=== PATIENT | female | born 1960 ===

== ENCOUNTER 2023-11-26 21:16 | Inpatient (IN) | payer OTHER ==
[~2023-11-26] VITALS: Ht 162.6 cm; Wt 88.8 kg
[2023-11-26 22:25] LABS: PCO2 Arterial 49.2 mmHg (35-45); PO2 Arterial 55.9 mmHg (80-100); pH Blood Arterial 7.43 (7.35-7.45)
[2023-11-26 22:30] VITALS: BP 147/114
[2023-11-26 22:45] VITALS: BP 151/127
[2023-11-26 22:55] LABS: BASOPHILS ABSOLUTE AUTO 0.05 K/mm3 (0.00-0.23); BASOPHILS PERCENT AUTO 1 % (0-2); EOSINOPHILS ABSOLUTE AUTO 0.11 K/mm3 (0.00-0.68); EOSINOPHILS PERCENT AUTO 1 % (0-6); Hematocrit 54.6 % (33.0-51.0); Hemoglobin 17.1 g/dL (11.5-16.0); Mean Corpuscular HGB 27.1 pg (26.0-34.0); Mean Corpuscular HGB Conc 31.3 g/dL (31.5-36.5); Mean Corpuscular Volume 87 fL (80-100); Mean Platelet Volume 10.3 fL (9.1-12.4); Platelet Count 319 K/mm3 (150-400); RDW Coefficient Variation 14.6 % (11.7-14.2); RDW Standard Deviation 46.1 fL (35.1-46.3); Red Blood Cell Count 6.31 M/mm3 (3.80-5.20); White Blood Cell Count 10.91 K/mm3 (4.00-11.30)
[2023-11-26 23:00] VITALS: BP 151/116
[2023-11-26 23:01] LABS: IMMATURE GRAN ABSOLUTE AUTO 0.04 K/mm3 (0.00-0.10); IMMATURE GRAN PERCENT AUTO 0 % (0-1); LYMPHOCYTES ABSOLUTE AUTO 4.34 K/mm3 (0.84-5.20); LYMPHOCYTES PERCENT AUTO 40 % (21-46); MONOCYTES PERCENT AUTO 6 % (4-13); NEUTROPHILS ABSOLUTE AUTO 5.67 K/mm3 (1.96-9.15); NEUTROPHILS PERCENT AUTO 52 % (41-73)
[2023-11-26 23:14] LABS: Albumin/Globulin Ratio 0.8 (0.8-1.8); Bilirubin, Total 0.4 mg/dL (0.1-1.0); Bun/Creatinine Ratio 8.3 (12.0-20.0); Calcium, Blood 8.5 mg/dL (8.5-10.1); Creatinine, Blood 0.97 mg/dL (0.40-1.00); Potassium, Blood 3.4 mmol/L (3.5-5.5)
[2023-11-26 23:15] VITALS: BP 155/116
[2023-11-26 23:30] VITALS: BP 142/114
[2023-11-26 23:35] LABS: Magnesium, Blood 2.5 mg/dL (1.6-2.4)
[2023-11-26 23:45] VITALS: BP 155/124
[2023-11-26] MEDS ORDERED: ALBU2.5V5 INH (23:45)
[2023-11-26] MEDS ORDERED: ASPI81CH PO (23:45)
[2023-11-26] MEDS ORDERED: CARV25 PO (23:46)
[2023-11-26] MEDS ORDERED: FURO40 PO (23:46)
[2023-11-26] MEDS ORDERED: CLOP75 PO (23:46)
[2023-11-26] MEDS ORDERED: HYDRA25 PO (23:47)
[2023-11-26] MEDS ORDERED: Crestor40 MG PO (23:48)
[2023-11-26] MEDS ORDERED: ENTRESTO 97 MG1 EACH PO (23:48)
[2023-11-26] MEDS ORDERED: LEVSOD100 PO (23:48)
[2023-11-26] MEDS ORDERED: SPIR50 PO (23:49)
[2023-11-27] VITALS (31 sets, daily range): BP systolic 108–169; BP diastolic 55–133
[2023-11-27 00:33] LABS: Source, Urine Clean Catch
[2023-11-27 00:37] LABS: Bilirubin, Urine Neg (Neg); Blood, Urine Neg (Neg); Glucose Qualitative, Urine Neg (Neg); Ketones, Urine Neg (Neg); Leukocyte Esterase, Urine Neg (Neg); Nitrite, Urine Neg (Neg); Protein, Urine 2+ (Neg); Urobilinogen, Urine NORM (Normal); pH, Urine 6.5 (5.0-8.0)
[2023-11-27 00:44] LABS: Appearance, Urine Clear (Clear); Color, Urine Yellow (P-Yellow)
[2023-11-27 00:45] LABS: Bacteria Not Seen /hpf; Red Blood Cells, Urine Not Seen /hpf (0-2); Squamous Epithelial Cells Not Seen /hpf (Few); White Blood Cells, Urine 0-2 /hpf (0-5)
[2023-11-27 00:55] LABS: U Amphetamine Screen Not Detected; U Barbituate Screen Not Detected; U Benzodiazapine Screen DETECTED; U Buprenorphine Screen Not Detected; U Cannabinoids Screen Not Detected; U Cocaine Screen Not Detected; U Methadone Screen Not Detected; U Methamphetamine Screen Not Detected; U Opiates Screen DETECTED; U Oxycodone Screen DETECTED; U Phencyclidine Screen Not Detected
--- NOTE | 2023-11-27 02:27 | NUR ---
PT ARRIVAL: PT TRANSPORTED TO UNIT VIA EMS arrived at 2215. Upon arrival pt was on room air and O2 saturation was 91%. Her HR was bradycardic in the 40-50 range. She was tachypnic and had moderate accessory muscle usage. She was lethargic, but responded to verbal stimuli. She was oriented x 4. Pt reported an extensive cardiac history with multiple stents placed in the past. She also has been dx with COPD and ESTELLE, but states that she is not compliant with her CPAP Rx. She also stated that she recently underwent a dental surgery and has been taking oxycodone, but that her last dose was yesterday (11/25) morning. She c/o increased drowsiness over the last 2 days and SOB w/ exertion. Dr. Quiñonez was contacted and informed of pt's arrival. Orders were placed.
[2023-11-27 02:53] LABS: Adenovirus Not Detected (NOT DETECT); Bordetella pertussis Not Detected (NOT DETECT); Chlamydophila pneumoniae Not Detected (NOT DETECT); Coronavirus 229E Not Detected (NOT DETECT); Coronavirus HKU1 Not Detected (NOT DETECT); Coronavirus NL63 Not Detected (NOT DETECT); Coronavirus OC43 Not Detected (NOT DETECT); Human Metapneumovirus Not Detected (NOT DETECT); Human Rhinovirus/Enterovirus Detected (NOT DETECT); Influenza A/2009-H1 Not Detected (NOT DETECT); Influenza A/H1 Not Detected (NOT DETECT); Influenza A/H3 Not Detected (NOT DETECT); Influenza B Not Detected (NOT DETECT); Mycoplasma pneumoniae Not Detected (NOT DETECT); Parainfluenza Virus 1 Not Detected (NOT DETECT); Parainfluenza Virus 2 Not Detected (NOT DETECT); Parainfluenza Virus 3 Not Detected (NOT DETECT); Parainfluenza Virus 4 Not Detected (NOT DETECT); Respiratory Syncytial Virus Not Detected (NOT DETECT); SARS-Cov-2 (COVID-19), BioFire Not Detected (NOT DETECT)
--- NOTE | 2023-11-27 06:13 | NUR ---
SHIFT SUMMARY: - Pt is resting comfortably in bed. She states that she is feeling better than she did when she arrived. She has tolorated CPAP overnight and maintained O2 saturations 95-98. Her HR has stayed between 40-75 BPM with intermittent PVC's. She did have 2 short bursts of V-tach. They were short in duration and she quickly converted out of them. She maintained pulses and was asymptomatic. Pt denies any chest pain, but continues to c/o SOB w/ exerction. Plan of care has been discussed with pt and family. They stated that they agree with plan and all current questions have been answered.
[2023-11-27 06:41] LABS: BASOPHILS ABSOLUTE AUTO 0.05 K/mm3 (0.00-0.23); BASOPHILS PERCENT AUTO 0 % (0-2); EOSINOPHILS ABSOLUTE AUTO 0.02 K/mm3 (0.00-0.68); EOSINOPHILS PERCENT AUTO 0 % (0-6); Hemoglobin 18.3 g/dL (11.5-16.0); IMMATURE GRAN ABSOLUTE AUTO 0.06 K/mm3 (0.00-0.10); IMMATURE GRAN PERCENT AUTO 1 % (0-1); LYMPHOCYTES ABSOLUTE AUTO 2.32 K/mm3 (0.84-5.20); LYMPHOCYTES PERCENT AUTO 20 % (21-46); MONOCYTES ABSOLUTE AUTO 0.55 K/mm3 (0.16-1.47); MONOCYTES PERCENT AUTO 5 % (4-13); Mean Corpuscular HGB 27.4 pg (26.0-34.0); Mean Corpuscular HGB Conc 32.3 g/dL (31.5-36.5); Mean Corpuscular Volume 85 fL (80-100); NEUTROPHILS ABSOLUTE AUTO 8.87 K/mm3 (1.96-9.15); NEUTROPHILS PERCENT AUTO 75 % (41-73); Platelet Count 330 K/mm3 (150-400); RDW Standard Deviation 45.1 fL (35.1-46.3); Red Blood Cell Count 6.67 M/mm3 (3.80-5.20); White Blood Cell Count 11.87 K/mm3 (4.00-11.30)
[2023-11-27 06:58] LABS: Hematocrit 56.7 % (33.0-51.0)
[2023-11-27 07:09] LABS: Bun/Creatinine Ratio 9.9 (12.0-20.0); Calcium, Blood 8.8 mg/dL (8.5-10.1); Creatinine, Blood 1.01 mg/dL (0.40-1.00); Potassium, Blood 3.9 mmol/L (3.5-5.5)
--- NOTE | 2023-11-27 16:38 | NUR ---
SHIFT SUMMARY NO ACUTE CHANGES THIS SHIFT. PT HAS REMAINED LETHARGIC THROUGHOUT THE SHIFT. PT AWAKENS EASILY TO VERBAL STIMULI, BUT QUICKLY FALLS BACK TO SLEEP WHEN UNDISTURBED. PT ANSWERS QUESTIONS APPROPRIATELY IN SHORT SENTENCES. PT HAS REMAINED OFF CPAP MOST OF THIS AFTERNOON ON 4L O2 NC. PT DENIES CHEST PAIN OR SOB AT REST. VITAL SIGNS STABLE. PT REMAINS WITH HR 40-60'S WITH FREQUENT ECTOPY AND OCCASIONAL NONSUSTAINED VTACH. DR PACE AWARE. PT WITH PIV'S SALINE LOCKED. LANCASTER IN PLACE WITH YELLOW OUTPUT NOTED. PT SPOUSE REMAINS AT BEDSIDE. WILL CONTINUE TO MONITOR AND REPORT OFF TO ONCOMING RN.
--- NOTE | 2023-11-27 21:26 | NUR ---
SHIFT HANDOFF: aT THE BEGGINING OF SHIFT PT IS SLEEPING BUT EASILY ARROUSED. SHE IS ORIENTATED X 4. SHE STATES THAT SHE FEELS LIKE HER SPEECH AND DEXTERITY HAVE IMPROVED. PT REPORTS CONTINUED DROWSINESS, BUT STATES THAT IT HAS IMPROVED FROM YESTERDAY. SHE IS CURRENTLY ON 4L NC AND HER WORK OF BREATHING HAS IMPROVED. SHE CONTINUES TO BE BRADYCARDIC WITH A 1ST DEGREE AV BLOCK AND LBBB. SHE DENIES ANY PAIN OR N/V. SHE DOES C/O INTERMITTENT DIZINESS, BUT STATES THAT IT HAS NOT BEEN PERSISTENT.
[2023-11-27 21:52] LABS: Magnesium, Blood 2.3 mg/dL (1.6-2.4); Potassium, Blood 3.5 mmol/L (3.5-5.5)
[2023-11-28] VITALS (12 sets, daily range): BP systolic 112–163; BP diastolic 87–123
[2023-11-28 03:32] LABS: BASOPHILS ABSOLUTE AUTO 0.03 K/mm3 (0.00-0.23); BASOPHILS PERCENT AUTO 0 % (0-2); EOSINOPHILS PERCENT AUTO 0 % (0-6); Hemoglobin 19.1 g/dL (11.5-16.0); IMMATURE GRAN ABSOLUTE AUTO 0.06 K/mm3 (0.00-0.10); IMMATURE GRAN PERCENT AUTO 0 % (0-1); LYMPHOCYTES ABSOLUTE AUTO 2.21 K/mm3 (0.84-5.20); LYMPHOCYTES PERCENT AUTO 16 % (21-46); MONOCYTES ABSOLUTE AUTO 0.33 K/mm3 (0.16-1.47); MONOCYTES PERCENT AUTO 2 % (4-13); Mean Corpuscular HGB 27.3 pg (26.0-34.0); Mean Corpuscular HGB Conc 32.6 g/dL (31.5-36.5); Mean Corpuscular Volume 84 fL (80-100); Mean Platelet Volume 10.5 fL (9.1-12.4); NEUTROPHILS ABSOLUTE AUTO 11.14 K/mm3 (1.96-9.15); NEUTROPHILS PERCENT AUTO 81 % (41-73); Platelet Count 302 K/mm3 (150-400); RDW Coefficient Variation 16.1 % (11.7-14.2); RDW Standard Deviation 44.3 fL (35.1-46.3); Red Blood Cell Count 6.99 M/mm3 (3.80-5.20); White Blood Cell Count 13.77 K/mm3 (4.00-11.30)
[2023-11-28 03:37] LABS: Hematocrit 58.6 % (33.0-51.0)
[2023-11-28 03:51] LABS: Albumin, Blood 2.9 g/dL (3.4-5.0); Albumin/Globulin Ratio 0.7 (0.8-1.8); Bilirubin, Total 0.8 mg/dL (0.1-1.0); Bun/Creatinine Ratio 15.1 (12.0-20.0); Calcium, Blood 8.5 mg/dL (8.5-10.1); Creatinine, Blood 1.19 mg/dL (0.40-1.00); Globulin, Blood 4.2 g/dL (2.2-4.0); Total Protein, Blood 7.1 g/dL (6.4-8.2)
--- NOTE | 2023-11-28 06:33 | NUR ---
SHIFT SUMMARY: PT'S METATION IMPROVED OVERNIGHT. SHE WAS ABLE TO MAINTAIN CONVERSATION WITH STAFF AND FAMILY WHEN IN THE ROOM. SHE ALSO WOKE UP SPONTANEOUSLY PERIODICALLY THROUGHOUT THE NIGHT AND WAS ABLE TO EXPRESS HER NEEDS. PT WAS COMPLIANT WITH BIPAP OVERNIGHT AND HER O2 SATURATION WAS STABLE. SHE DID C/O PERIODIC EPISODES OF NAUSEA THAT SPONTANEOUSLY RESOLVED AND DID NOT REQUIRE ANY MEDICATION. AT 0620 THIS MORNING SHE DID START TO C/O SUBSTERNAL CHEST PAIN. DR. KOHLER WAS INFORMED AND GAVE A VERBAL ORDER FOR PAIN MEDICATION. PT HAD NO CHANGE IN HER HEART RATE/RHYTHM OR BP. SHE STATES THAT PAIN WAS RELIEVED BY MEDICATION. PT HAS A TKO RUNNING. LANCASTER IN PLACE AND IS DRAINING APPROPRIATLY. URINE OUTPUT HAS DECREASED. DR KOHLER IS AWARE AND INSTRUCTED TO CONTINUE TO MONITOR. PT'S DAUGHTER HAS BEEN AT BEDSIDE ALL NIGHT.
[2023-11-28 07:54] LABS: Magnesium, Blood 2.2 mg/dL (1.6-2.4); Phosphorus, Blood 3.2 mg/dL (2.5-4.9)
--- NOTE | 2023-11-28 16:58 | NUR ---
SHIFT SUMMARY NO ACUTE CHANGES THIS SHIFT. PT AWAKENS EASILY TO VERBAL STIMULI AND ANSWERS QUESTIONS APPROPRIATELY. PT FALLS BACK TO SLEEP QUICKLY WHEN UNDISTURBED. PT HAS DENIED CHEST PAIN OR SOB THIS AFTERNOON. PT TITRATED DOWN TO 3L O2 NC. VITAL SIGNS REMAIN STABLE. PT CONTINUES WITH HR 40-60'S WITH FREQUENT ECTOPY. PT ASYMPTOMATIC AND DR PACE AWARE. PT TAKING PO FLUID INTAKE WELL, BUT WITH POOR APPETITE THIS SHIFT. PT RECIEVED MULTIPLE DOSES OF LASIX THIS SHIFT. PT WITH LANCASTER IN PLACE WITH LARGE AMOUNT OF CLEAR YELLOW URINE OUTPUT NOTED. PT SPOUSE AT BEDSIDE MOST OF THIS SHIFT. WILL CONTINUE TO MONITOR AND REPORT OFF TO ONCOMING RN.
--- NOTE | 2023-11-28 19:14 | NUR ---
SHIFT SUMMARY: ASSUMED CARE OF PATIENT AT 1743 UPON HER TRANSFER FROM ICU. AROUSES TO SPEECH AND IS ORIENTED WHEN AWAKE. O2 @ 3 L/MIN NC, CPAP AT BESIDE. TIRE SPECIALIST PLACED ON PATIENT, RATE 37-45 IRREGULAR. PT C/O 810 CHEST PAIN AT ~ 1810, RADIATED BRIEFLY TO R JAW AND L SHOULDER/UPPER ARM. REPORTED THIS TO DR. PACE; RECEIVED ORDERS FOR EKG (ALREADY IN PROGRESS) AND TROPONIN X 1. GAVE FENTANYL 25 MCG FOR THE PAIN, WHICH GAVE SOME RELIEF. TROPONIN RESULT WAS 171; PREVIOUS RESULT ON 11/27 WAS 188. SPOKE TO HOMOEOPATH SINCE RESULT IS TRENDING IN THE RIGHT DIRECTION. LANCASTER DRAINING CLEAR YELLOW URINE. BEST FRIEND AT BEDSIDE AT THIS TIME.
[2023-11-28 23:35] LABS: Bun/Creatinine Ratio 22.2 (12.0-20.0); Calcium, Blood 8.1 mg/dL (8.5-10.1); Creatinine, Blood 1.17 mg/dL (0.40-1.00); Potassium, Blood 3.2 mmol/L (3.5-5.5)
[2023-11-29] VITALS (12 sets, daily range): BP systolic 89–122; BP diastolic 44–88
--- NOTE | 2023-11-29 00:26 | NUR ---
CRITICAL LAB VALUE 7249 TROPONIN LEVEL: 178 DR. KOHLER NOTIFIED OF CRITICAL LAB VALUE.
[2023-11-29 05:28] LABS: Albumin, Blood 2.6 g/dL (3.4-5.0); Anion Gap 5 mmol/L (6-16); Blood Urea Nitrogen 25 mg/dL (8-24); Bun/Creatinine Ratio 23.8 (12.0-20.0); CO2, Blood 34 mmol/L (21-32); Chloride, Blood 101 mmol/L (98-108); Creatinine, Blood 1.05 mg/dL (0.40-1.00); Glomerular Filtration Rate 60 (60-); Glucose, Blood 120 mg/dL (70-99); Magnesium, Blood 2.1 mg/dL (1.6-2.4); Phosphorus, Blood 3.6 mg/dL (2.5-4.9); Potassium, Blood 3.3 mmol/L (3.5-5.5); Sodium, Blood 140 mmol/L (136-145)
--- NOTE | 2023-11-29 08:06 | NUR ---
Pt laying in bed awake, a/ox3, pleasant and cooperative with care, follows commands well, denies pain, states she is sob, lungs are clear in [place], some courseness, faint wheeze noted to mid field and bases, resp even and unlabored, on 3 liters o2 via n/c, no cough noted, does report sob, hrirr, tele in place running sr with bbb, with pvc and pacs, had a 5 beat run vtach durring hs, and a 2.3 sec pause at 0218, 2+ edema noted to b/l le, pp faint, piv to lac, site is clear and patent, btx4, hypoactive, campbell cath draining yellow urine, skin c/w/d, joseph, one person assist to bsc, will, notified Dr. Berrios of concerns about low heart rate and pause durring the night, recieved order for cardiology consult, this was called to answering service, will hold coreg for low rate. call light in reach.
[2023-11-29 10:14] LABS: Free Thyroxine 0.79 ng/dL (0.70-1.60); Thyroid Stimulating Hormone 4.49 uIU/mL (0.360-4.800)
[2023-11-29 11:27] LABS: Cholesterol 115 mg/dL (50-200); HDL Cholesterol 23 mg/dL (>39); LDL/HDL RATIO 2.8; Low Density Lipoprotein Chol 65 mg/dL (0-110); Triglycerides 136 mg/dL (30-160); Very Low Density Lipoprot Chol 27 mg/dL (6-32)
--- NOTE | 2023-11-29 15:56 | NUR ---
Pt has been transfered to u, report given to Kamini VILLA, taken via wheelchair with spouce in attendence, all belongings went with spouce.
--- NOTE | 2023-11-29 15:57 | NUR ---
TRANSFER: PT TO PCU 4 FROM MEDICAL FLOOR. PT A+O. SPOUSE AT BEDSIDE. PT SBA TO BED. LANCASTER DRAINING DARK YELLOW URINE. ATTENDS IN PLACE. EXP WHEEZES T/O LUNGS. DENIES SOB. SATS STABLE ON 3L. TELE IN PLACE. IV FLUSHED WITH 10NS. PT DUSKY IN COLOR. LE DISCOLORED AND COOL. SBP IN THE 80'S. REPORT TO DAISY VICENTE SHE IS ASSUMING CARE.
--- NOTE | 2023-11-29 22:57 | NUR ---
ASSUMPTION OF CARE AFTER RECEIVING REPORT FROM JULES VILLA, THIS RN ASSUMED CARE AT APPROX 1915. PATIENT IS ALERT AND ORIENTED X4. AT BEDSIDE, THIS RN PROVIDED EDUCATION REGARDING VISITOR GUIDELINES. THIS RN DISCUSSED WITH DELI BAKERY CLERK GLADIS, HER IS ABLE TO STAY AT BEDSIDE THROUGHOUT NIGHT IF MORE COMFORTABLE. IS CURRENTLY NOT AT BEDSIDE, PATIENT REPORTING THAT SHE WILL CALL HIM IF NEEDED. TELEMETRY SHOWING SINUS ARRYTHMIA 60's-70's AT BEGINNING OF SHIFT. PATIENT DID CONVERT TO A SECOND DEGREE BLOCK TYPE TWO, RATE DECREASE TO 30's. CURRENTLY SUSTAINING 50's-60's. NPO AT MIDNIGHT FOR POSSIBLE PACEMAKER PLACEMENT 11/29/23. BP SOFT, SBP 100's. MAP >65. DENIES CHEST PAIN OR PRESSURE. DOES REPORT EPIGASTRIC PAIN 06/07. THIS RN ADMINISTED IV FENTANYL PER EMAR W/ RELIEF, PATIENT REPORTING THAT IT DOES NOT "LAST VERY LONG." MD ON UNIT FOR ROUNDING, DISCUSSED EPIGASTRIC PAIN. RECEIVED ORDER FOR GI COCKTAIL, ADMINISTERED PER EMAR. PATIENT REPORTING SOME RELIEF. IS ON 4L VIA NASAL CANNULA, SATS 90%. EXPERIENCES INCREASED SHORTNESS OF BREATH WITH MOBILITY, STAND BY ASSIST TO BEDSIDE COMMODE. SHORTNESS OF BREATH EASES AT REST. LANCASTER CATHETER IN PLACE, DRAINING YELLOW URINE TO GRAVITY. PATIENT IS ABLE TO REPOSITION HERSELF IN BED. CALL LIGHT IN REACH.
--- NOTE | 2023-11-29 23:54 | NUR ---
CALL PLACED TO MD REGARDING RHYTHM CHANGE TO SECOND DEGREE TYPE TWO. RATE SUSTAINING 50's-60's WITH OCCASSIONAL DECREASE 40's. BP SOFT, SBP 90's-100's. MAP >65. PATIENT CONTINUING TO REPORT EPIGASTRIC PAIN. REPORTS THAT THE FENTANYL AND GI COCKTAIL PROVIDE SOME RELIEF, BUT ARE NOT LONG LASTING. MD TO UNIT TO ASSESS PATIENT.
[2023-11-30] VITALS (19 sets, daily range): BP systolic 90–125; BP diastolic 44–92
--- NOTE | 2023-11-30 00:04 | NUR ---
MD TO BEDSIDE TO ASSESS PATIENT. PATIENT REPORTING THAT PAIN INCREASES WITH PALPATION, IT DOES NOT RADIATE DOWN TO THE ABDOMEN. IT INCREASES WITH DEEPER BREATHS. PER MD, PAIN IS MOST LIKELY MORE RIB PAIN, RELATED TO INFLAMMATION, FROM FREQUENT COUGH. PATIENT REPORTING THAT SHE IS UNABLE TO TAKE NSAID's. NO NEW ORDERS RECEIVED, TO CONTINUE TO IV FENTANYL. NO ORDERS RECEIVED REGARDING RHYTHM CHANGE. BP SOFT, 90's-100's. MAP REMAINS >65. RATE 50's-60's.
[2023-11-30 04:32] LABS: Hematocrit 52.7 % (33.0-51.0); Hemoglobin 16.9 g/dL (11.5-16.0); Mean Corpuscular HGB 27.1 pg (26.0-34.0); Mean Corpuscular HGB Conc 32.1 g/dL (31.5-36.5); Mean Corpuscular Volume 85 fL (80-100); Mean Platelet Volume 11.3 fL (9.1-12.4); Platelet Count 245 K/mm3 (150-400); RDW Coefficient Variation 15.5 % (11.7-14.2); RDW Standard Deviation 44.5 fL (35.1-46.3); Red Blood Cell Count 6.23 M/mm3 (3.80-5.20); White Blood Cell Count 14.02 K/mm3 (4.00-11.30)
[2023-11-30 05:02] LABS: Albumin, Blood 2.7 g/dL (3.4-5.0); Anion Gap 3 mmol/L (6-16); Blood Urea Nitrogen 21 mg/dL (8-24); Bun/Creatinine Ratio 20.4 (12.0-20.0); CO2, Blood 37 mmol/L (21-32); Calcium, Blood 7.8 mg/dL (8.5-10.1); Chloride, Blood 98 mmol/L (98-108); Creatinine, Blood 1.03 mg/dL (0.40-1.00); Glomerular Filtration Rate 62 (60-); Glucose, Blood 108 mg/dL (70-99); Magnesium, Blood 2.1 mg/dL (1.6-2.4); Phosphorus, Blood 2.8 mg/dL (2.5-4.9); Potassium, Blood 3.1 mmol/L (3.5-5.5); Sodium, Blood 138 mmol/L (136-145)
--- NOTE | 2023-11-30 05:43 | NUR ---
SHIFT SUMMARY SEE PREVIOUS NOTES. PATIENT IS CURRENTLY SLEEPING, EASILY AROUSABLE TO VERBAL STIMULI. IS ABLE TO REPOSITION HERSELF IN BED INDEPENDENTLY. STERNAL PAIN MANAGED PER EMAR W/ IV FENTANYL. TELEMETRY CURRENTLY SHOWING SINUS W/ PACs AND OCCASSIONAL PVCs. RATE 50's-60's. PATIENT CONTINUING TO INTERMITTENTLY CONVERT TO SECOND DEGREE BLOCK TYPE TWO, RATE DECREASE 30's-40's. BP REMAINS SOFT, 90's-110's. MAP >65. MD AWARE. NO NEW ORDERS RECEIVED. PATIENT HAS BEEN NPO SINCE MIDNIGHT FOR POSSIBLE PACEMAKER PLACEMENT TODAY 11/30/23. REMAINS ON 4L VIA NASAL CANNULA, SATS 88-92%. OCCASSIONAL CONGESTED COUGH NOTED. CALL LIGHT IN REACH. WILL REPORT TO ONCOMING RN.
--- NOTE | 2023-11-30 11:06 | NUR ---
UPDATE PT POTASSIUM LOW THIS AM, IV K+ ORDERED BY , SEE EMAR. PT STATES, SHE "CANT TOLERATE" IV POTASSIUM, THAT SHE TRIED IN THE ICU AND IT HURT TOO MUCH. POTASSIUM ATTEMPTED AT A SLOWER THAN SCHEDULED RATE W/ NS CONCURRENT, PT STILL C/O OF BURNING. PT INSISTED ON STOPPING K+. NOTIFIED. PT C/O OF ANXIETY. PT STATES, "IM FRUSTRATED" BUT COULD NOT STATE WHY. PT STATES, "EVERYTHING, BUT MY CARE HAS BEEN GREAT." CALL PLACED TO MD PACE. MD PACE W/ ORDER FOR ATIVAN, SEE EMAR. ADMINISTERED TO PT. PT TO [facility] NOW FOR ANGIO.
--- NOTE | 2023-11-30 12:18 | NUR ---
UPDATE PT BACK FROM [facility]. NO INTERVENTIONS. R RADIAL SITE, TR BAND IN PLACE WITH 10 CC PER REPORT. NO BRUISING/BLEEDING/HEMATOMA NOTED, SITE SOFT. ARM BOARD IN PLACE. VSS. PT SET UP ON POST OP VITAL CAPTURE. PT CURRENTLY IN ROOM EATING LUNCH. AT BEDSIDE. MD ORDOÑEZ CALLED W/ ORDERS FOR PT TO DC THIS AFTERNOON ONCE RECOVERED, BACK TO [facility] TO FOLLOW UP WITH SYSTEMS SECURITY ANALYST AND DC WITH ZIO PATCH ON. MD ORDOÑEZ W/ ORDERS FOR NO COREG WELL.
--- NOTE | 2023-11-30 16:50 | NUR ---
SHIFT SUMMARY NO ACUTE CHANGES SINCE PREVIOUS NOTE. PT SLEEPING IN ROOM. SP02>90% ON 3L NC. TELEMETRY SHOWS SINUS ARRYTHMIA, HR MOSTLY 50'S-60'S. TELEMETRY NOTIFIED THIS AFTERNOON THAT HR TOUCHING 30'S EVERY FEW MINUTES. PT HAS R RADIAL SITE CURRENTLY IN PROCESS OF DEFLATING. NO BRUISING/HEMATOMA NOTED. SITE SOFT. ARM BOARD IN PLACE. ZIO PATCH ORDERED FOR TOMORROW DC. HOME 02 EVAL ORDERED. PT CURRENTLY SLEEPING IN ROOM, AT BEDSIDE.
--- NOTE | 2023-11-30 21:35 | NUR ---
ASSUMPTION OF CARE AFTER RECEIVING REPORT FROM JULES VILLA, THIS RN ASSUMED CARE AT APPROX 1915. PATIENT ALERT, SITTING UP IN BED WATCHING TV. IS ALERT AND ORIENTED X4. ABLE TO COMMUNICATE NEEDS EFFECTIVELY. EXPERIENCES EPISODES OF INCREASED ANXIETY, PRN ATIVAN IN PLACE AND FAMILY MEMBER AT BEDSIDE TO EASE ANXIETY. TELEMETRY SHOWING SINUS HONORIO 50's-60's. WILL CONVERT TO A SECOND DEGREE TYPE TWO BLOCK, RATE 30's-40's. BP SOFT, SBP 90's-100's. MAP >60. IS ASYMPTOMATIC OF BP. ANGIO PERFORMED TODAY, 11/30/23. R RADIAL SITE - TR BAND REMOVED AT 1920. TEGADERM DRESSING APPLIED OVER SITE. SITE IS SOFT, NONTENDER. NO HEMATOMA NOTED. ARMBOARD IN PLACE. IS ON 3L VIA NASAL CANNULA, SATS 88-92%. EXPERIENCES INCREASED SHORTNESS OF BREATH WITH EXERTION. REPORTS STERNAL PAIN THAT INCREASES WITH COUGHING, PALPATION, DEEPER RESPIRATIONS. REQUESTING IV FENTANYL, PROVIDED PATIENT EDUCATION REGARDING SAFE ADMINISTRATION. BP SOFT, IS BRADYCARDIC. OFFERED PILLOW FOR SPLINTING, KPAD. PATIENT DECLINED. LANCASTER CATHETER IN PLACE FOR RETENTION MANAGEMENT, DRAINING YELLOW URINE TO GRAVITY. CALL LIGHT IN REACH.
--- NOTE | 2023-11-30 22:12 | NUR ---
PATIENT REQUESTING MUCINEX FOR COUGH/CONGESTION. MD ZHENG CONTACTED. RECEIVED ORDER FOR MUCINEX ER 1200MG BID. WILL ADMINISTER PER EMAR.
[2023-12-01] VITALS: BP 95/70
[2023-12-01 01:50] VITALS: BP 117/79
[2023-12-01 02:00] VITALS: BP 116/70
[2023-12-01 04:00] VITALS: BP 116/85
[2023-12-01 05:26] LABS: Bun/Creatinine Ratio 17.6 (12.0-20.0); Calcium, Blood 8.2 mg/dL (8.5-10.1); Creatinine, Blood 0.91 mg/dL (0.40-1.00)
--- NOTE | 2023-12-01 05:44 | NUR ---
SHIFT SUMMARY NO ACUTE CHANGES SINCE PREVIOUS NOTES. PATIENT SLEPT INTERMITTENTLY THROUGHOUT SHIFT, EASILY AROUSABLE TO VERBAL STIMULI. NO EPISODES OF INCREASED ANXIETY THIS SHIFT, FAMILY AT BEDSIDE THROUGHOUT. TELEMETRY SHOWING SINUS 50's-70's. WILL CONVERT TO A SECOND DEGREE BLOCK TYPE TWO. BP IMPROVED, SBP 110's. MAP >65. MEDICATED PER EMAR X1 WITH IV FENTANYL FOR CONTINUED STERNAL PAIN W/ REPORTED RELIEF. ABLE TO TOLERATE SITTING ON SIDE OF BED, STANDING IN ROOM WITH NO REPORT OF DIZZINESS, LIGHTHEADEDNESS. REMAINS ON 3L VIA NASAL CANNULA, SATS 89-92%. REPORTS RELIEF FROM CONGESTION, COUGH WITH ADMINISTERED MUCINEX. LANCASTER CATHETER PATENT, DRAINING YELLOW URINE TO GRAVITY. NO BM THIS SHIFT. CALL LIGHT IN REACH. WILL REPORT TO ONCOMING RN.
[2023-12-01 06:10] LABS: HEMOGLOBIN A1C 6.2 % (4.8-5.6)
--- NOTE | 2023-12-01 06:12 | NUR ---
MD CONTACTED IN REGARDS TO POTASSIUM OF 3.0. RECEIVED ORDER FOR POTASSIUM CHLORIDE 40MEQ IV NOW. ORDER PLACED BY THIS RN.
[2023-12-01 07:35] VITALS: BP 107/72
--- NOTE | 2023-12-01 07:40 | NUR ---
Bedside report from DAISY Castro. The pt is sitting on the side of the bed, her daughter at bedside. Pt is pressing on her lower sternal area, c/o sharp pain, and asking for Fentanyl and Zofran for pain and nausea respectively. Vital signs are stable. Pt was given these meds and states now that her pain is decreased from 7/10 to 5/10. She has a moist-sounding cough but unable to expectorate any sputum yet. C/o pain also in her right IV site, which apparently is from the IV potassium infusion ongoing, as the site appears WNL. K rider rate was decreased to 10cc ./hour with NS infusing concurrently at 10 cc/hour. Pt states relief. Pt also has a campbell cathter which was per report placed for retention after 3 straight caths. Urine noted in bag and tubing is clear yellow. Per report the "pt cannot go home with a campbell, so bladder training should be started today." This was started at time of bedside report.Pt instructed to call if she feels like she needs to void.
[2023-12-01 12:02] VITALS: BP 104/76
[2023-12-01] MEDS ORDERED: PANT40 PO (12:44)
== END 2023-12-01 14:29 | disposition home or self-care (01) | DRG 291 ==
LOC: ICUE 21:16 → PCU 22:17 → ICUE 11-27 05:40 → MEDS 11-28 17:43 → PCU 11-29 15:54
PROVIDERS: Internal Medicine; Student in an Organized Health Care Education/Training Program; ADMIT Student in an Organized Health Care Education/Training Program
PROC: 4A033R1 Measurement of Arterial Saturation, Peripheral, Percutaneous Approach (ICD-10-PCS; principal; 2023-11-26)
DX: I11.0 Hypertensive heart disease with heart failure (principal); G92.8 Other toxic encephalopathy; I50.23 Acute on chronic systolic (congestive) heart failure; J96.01 Acute respiratory failure with hypoxia; J44.0 Chronic obstructive pulmonary disease with (acute) lower respiratory infection; J44.1 Chronic obstructive pulmonary disease with (acute) exacerbation; Z11.52 Encounter for screening for COVID-19; J06.9 Acute upper respiratory infection, unspecified; B97.89 Other viral agents as the cause of diseases classified elsewhere; G47.33 Obstructive sleep apnea (adult) (pediatric); T40.605A Adverse effect of unspecified narcotics, initial encounter; I44.1 Atrioventricular block, second degree; E87.6 Hypokalemia; E78.5 Hyperlipidemia, unspecified; K21.9 Gastro-esophageal reflux disease without esophagitis; E03.9 Hypothyroidism, unspecified; I25.10 Atherosclerotic heart disease of native coronary artery without angina pectoris; Z95.5 Presence of coronary angioplasty implant and graft; Z91.199 Patient's noncompliance with other medical treatment and regimen due to unspecified reason
CPT/HCPCS: 0202U; 36415; 36600; 51702; 71045; 76937; 78451; 80048; 80053; 80061; 80069; 81001; 82803; 83036; 83735; 83880; 84100; 84132; 84439; 84443; 84484; 85025; 85027; 93005; 93010; 93246; 93454; 94640; 94660; 94664; 94761; 94762; 99152; 99153; A9270; A9500; C1769; C1894; C8929; C9113; J1644; J1650; J1940; J2060; J2250; J2405; J2930; J3010; J3480; J7030; J7050; Q9957; Q9967

== ENCOUNTER 2025-10-02 16:02 | Inpatient (IN) | payer MEDICARE ==
[~2025-10-02] VITALS: Ht 162.6 cm; Wt 86.6 kg
[~2025-10-02 16:02] MED LIST: ALBU2.5V5 INH; ASPI81CH PO; CARV25 PO; CLOP75 PO; Crestor40 MG PO; ENTRESTO 97 MG1 EACH PO; FURO40 PO; HYDRA25 PO; LEVSOD100 PO; PANT40 PO; SPIR50 PO
[2025-10-02 18:37] VITALS: BP 120/82
[2025-10-02] MEDS ORDERED: NS 1,000 ML IV SCH (19:00)
[2025-10-02] MEDS ORDERED: Ondansetron HCl 2 MG / ML 2ML Vial IV PRN (19:00)
[2025-10-02] MEDS ORDERED: FLU VACC TS2025-26(6MOS UP)/PF 45 MCG/0.5 ML SYRINGE IM SCH (19:05)
[2025-10-02] MEDS ORDERED: FentaNYL Citrate 50 MCG/ML 2 ML Injection IV PRN (19:30)
[2025-10-02] MEDS ORDERED: Ipratropium/Albuterol SulF 2.5-0.5MG/3 ML Amp INH SCH (19:35)
[2025-10-02 19:50] LABS: BASOPHILS ABSOLUTE AUTO 0.04 K/mm3 (0.00-0.23); BASOPHILS PERCENT AUTO 1 % (0-2); EOSINOPHILS ABSOLUTE AUTO 0.02 K/mm3 (0.00-0.68); EOSINOPHILS PERCENT AUTO 0 % (0-6); Hematocrit 42.1 % (33.0-51.0); Hemoglobin 12.9 g/dL (11.5-16.0); IMMATURE GRAN ABSOLUTE AUTO 0.32 K/mm3 (0.00-0.10); IMMATURE GRAN PERCENT AUTO 4 % (0-1); LYMPHOCYTES ABSOLUTE AUTO 2.07 K/mm3 (0.84-5.20); LYMPHOCYTES PERCENT AUTO 26 % (21-46); MONOCYTES ABSOLUTE AUTO 0.55 K/mm3 (0.16-1.47); MONOCYTES PERCENT AUTO 7 % (4-13); Mean Corpuscular HGB Conc 30.6 g/dL (31.5-36.5); Mean Corpuscular Volume 72 fL (80-100); NEUTROPHILS ABSOLUTE AUTO 5.01 K/mm3 (1.96-9.15); NEUTROPHILS PERCENT AUTO 63 % (41-73); NRBC ABSOLUTE 0.00 K/mm3 (0.00-0.02); NRBC Auto 0.0 /100 WBC (0.0-0.2); Platelet Count 138 K/mm3 (150-400); RDW Coefficient Variation 22.9 % (11.7-14.2); RDW Standard Deviation 56.4 fL (35.1-46.3)
[2025-10-02] MEDS ORDERED: MetroNIDAZOLE 500MG/NS 100 ml 100 ML IV SCH (20:00)
[2025-10-02] MEDS ORDERED: Ciprofloxacin 400MG/D5 200ML 200 ML IV SCH (20:00)
[2025-10-02 20:15] LABS: Alanine Aminotransfer (ALT/SGP 13.0 U/L (12-78); Albumin, Blood 1.6 g/dL (3.4-5.0); Albumin/Globulin Ratio 0.4 (0.8-1.8); Anion Gap 6.0 mmol/L (3-11); Aspartate Aminotrans (AST/SGOT 14.0 U/L (12-37); Bilirubin, Total 0.4 mg/dL (0.1-1.0); Blood Urea Nitrogen 22.0 mg/dL (8-24); CO2, Blood 28.0 mmol/L (21-32); Calcium, Blood 7.1 mg/dL (8.5-10.1); Chloride, Blood 103.0 mmol/L (98-108); Creatinine, Blood 1.19 mg/dL (0.40-1.00); Globulin, Blood 3.6 g/dL (2.2-4.0); Glucose, Blood 114.0 mg/dL (70-99); Magnesium, Blood 2.5 mg/dL (1.6-2.4); Potassium, Blood 3.1 mmol/L (3.5-5.5); Sodium, Blood 134.0 mmol/L (136-145); Total Protein, Blood 5.2 g/dL (6.4-8.2)
[2025-10-02 20:26] VITALS: BP 130/103
[2025-10-02] MEDS ORDERED: FERSU300 PO (20:41)
[2025-10-02] MEDS ORDERED: Prozac20 MG PO (20:41)
[2025-10-02] MEDS ORDERED: ALBU90OI INH (20:41)
[2025-10-02] MEDS ORDERED: HYDHCL25 PO (20:42)
[2025-10-02] MEDS ORDERED: GABA300 PO (20:42)
[2025-10-02] MEDS ORDERED: Isosorbide Mono30 MG PO (20:43)
[2025-10-02] MEDS ORDERED: LOSA25 PO (20:43)
[2025-10-02] MEDS ORDERED: EUTHYROX50 MCG PO (20:43)
[2025-10-02] MEDS ORDERED: NARCAN4 M1 (20:44)
[2025-10-02] MEDS ORDERED: NITR.4SL SL (20:44)
[2025-10-02] MEDS ORDERED: METO100ER PO (20:44)
[2025-10-02] MEDS ORDERED: NYAMYC15 G1 TOP (20:45)
[2025-10-02] MEDS ORDERED: PROM25 PO (20:46)
[2025-10-02] MEDS ORDERED: TORSE20 PO (20:46)
[2025-10-02] MEDS ORDERED: POTA10T PO (20:46)
[2025-10-02] MEDS ORDERED: WARF5 PO (20:47)
[2025-10-02] MEDS ORDERED: TRAZ50 PO (20:47)
[2025-10-02 21:37] LABS: Thyroid Stimulating Hormone 8.03 uIU/mL (0.360-4.800)
[2025-10-02] MEDS ORDERED: DiphenhydrAMINE HCl 50 MG/ML 1ML Vial IV ONE (22:45)
[2025-10-02] MEDS ORDERED: Albuterol 2.5 MG/3 ML VIAL INH PRN (23:30)
[2025-10-03] VITALS (7 sets, daily range): BP systolic 93–142; BP diastolic 67–94
--- NOTE | 2025-10-03 04:05 | NUR ---
NOC SHIFT SUMMARY PT ARRIVED FROM [facility] DIRECT ADMIT. LETHARGIC BUT ORIENTED, ABLE TO MAKE NEEDS KNOWN. JESSY IN ROOM. ORIENTED TO CALL LIGHT, BED IN LOWEST POSITION, BED ALARM ON. VSS, ON 2L VIA NC. REPORTS WEARING A CPAP AT NIGHT AND 1-2L O2 AT HOME. ADMISSION HX AND MEDICATIONS COMPLETED. SPOKE WITH RESIDENT MING AND SADIE HENDERSON NP ABOUT PLAN OF CARE AND NOTIFIED OF VTACH RUNS 4-7 BEATS ON MONITOR. PACED OUT OF THEM. [employer]IC COBALT XT HF CRTD-D [id number] TO DREW CHEST. SHE REPORTS BEING "SHOCKED" LAST WEDNESDAY WHILE AT HOME X1. DENIES ANY SYMPTOMS AND DID NOT PRESENT TO ER. NOTIFIED PROVIDER IN ROOM. ORDERS FOR MAG LEVEL AND REPLACEMENT K+, DECLINED CARDIOLOGY CONSULT AT THIS TIME. PLAN FOR IR CONSULT ALREADY CALLED IN PER NOTES, AND SURGERY CONSULT IN AM CALLED IN BY THIS RN. FAMILY AND PT UPDATED ON PLAN OF CARE
[2025-10-03 04:14] LABS: BASOPHILS ABSOLUTE AUTO 0.05 K/mm3 (0.00-0.23); BASOPHILS PERCENT AUTO 1 % (0-2); EOSINOPHILS ABSOLUTE AUTO 0.11 K/mm3 (0.00-0.68); EOSINOPHILS PERCENT AUTO 2 % (0-6); Hematocrit 38.4 % (33.0-51.0); Hemoglobin 11.4 g/dL (11.5-16.0); IMMATURE GRAN ABSOLUTE AUTO 0.19 K/mm3 (0.00-0.10); IMMATURE GRAN PERCENT AUTO 3 % (0-1); LYMPHOCYTES ABSOLUTE AUTO 2.38 K/mm3 (0.84-5.20); LYMPHOCYTES PERCENT AUTO 32 % (21-46); MONOCYTES ABSOLUTE AUTO 0.53 K/mm3 (0.16-1.47); MONOCYTES PERCENT AUTO 7 % (4-13); Mean Corpuscular HGB Conc 29.7 g/dL (31.5-36.5); Mean Corpuscular Volume 75 fL (80-100); NEUTROPHILS ABSOLUTE AUTO 4.12 K/mm3 (1.96-9.15); NEUTROPHILS PERCENT AUTO 56 % (41-73); NRBC ABSOLUTE 0.00 K/mm3 (0.00-0.02); NRBC Auto 0.0 /100 WBC (0.0-0.2); Platelet Count 123 K/mm3 (150-400); RDW Coefficient Variation 22.5 % (11.7-14.2); RDW Standard Deviation 59.1 fL (35.1-46.3)
[2025-10-03 04:27] LABS: Prothrombin Time Results 12.8 Sec (9.7-11.5)
[2025-10-03 04:42] LABS: Alanine Aminotransfer (ALT/SGP 11.0 U/L (12-78); Albumin, Blood 1.3 g/dL (3.4-5.0); Albumin/Globulin Ratio 0.4 (0.8-1.8); Anion Gap 10.0 mmol/L (3-11); Aspartate Aminotrans (AST/SGOT 14.0 U/L (12-37); Bilirubin, Total 0.3 mg/dL (0.1-1.0); Blood Urea Nitrogen 19.0 mg/dL (8-24); CO2, Blood 23.0 mmol/L (21-32); Calcium, Blood 6.8 mg/dL (8.5-10.1); Chloride, Blood 105.0 mmol/L (98-108); Creatinine, Blood 1.06 mg/dL (0.40-1.00); Globulin, Blood 3.1 g/dL (2.2-4.0); Glucose, Blood 93.0 mg/dL (70-99); Potassium, Blood 3.8 mmol/L (3.5-5.5); Sodium, Blood 134.0 mmol/L (136-145); Total Protein, Blood 4.4 g/dL (6.4-8.2)
[2025-10-03] MEDS ORDERED: HYDROmorphone HCl/Pf 1MG SYR IV PRN ×2 (06:25→09:55)
[2025-10-03] MEDS ORDERED: Isosorbide Mononitrate 60 MG TABCR PO SCH ×2 (09:00)
[2025-10-03] MEDS ORDERED: Ipratropium/Albuterol SulF 2.5-0.5MG/3 ML Amp INH SCH ×2 (10:00)
[2025-10-03] MEDS ORDERED: Dose Adjust by Pharmacy XX STA (13:19)
[2025-10-03] MEDS ORDERED: Heparin Sodium 5000 Units/ML 1ML MDV IV ONE (13:20)
[2025-10-03] MEDS ORDERED: Heparin Sodium,Porcine/0.5 NS 500 ML IV SCH (13:20)
--- NOTE | 2025-10-03 17:36 | NUR ---
PT SUMMARY; PT DIET WAS RESUMED TO CLEAR LIQUID DIET, TOLERATING PO AT THIS TIME. VITALS HRR PACED AT 80'S, WTIH A COUPLE EPISODES OF 5-6 RUNS OF VATCH PT ASYMPTOMATIC, SBP SOFT 90-110'S, SATS ABOVE 95% RA, AFEBRILE. ABD PAIN CONTROLED WITH IV DILAUDID, NO BM TODAY. DENIES NAUSEA AND VOMITING. WAS UP IN THE CHAIR FOR DINNER. HEPARIN GTT STARTED AT 18U/KG/HR. AT THE BEDSIDE MOST OF THE SHIFT. ABLE TO TALK TO THE SURGEON ABOUT PLAN OF CARE. AWAITING TO HEAR BACK FROM SURGEONS UP IN [facility]. NO CURRENT SURGERY PLAN OF THIS TIME. WILL REPORT TO ONCOMING SHIFT
[2025-10-04 02:05] VITALS: BP 105/76
--- NOTE | 2025-10-04 02:06 | NUR ---
solar tech reported 6 beat run of Vtach patient asymptomatic, denies chest pain, shortness of breath. BP 105/76, heart rate 76, pulse ox 96%
[2025-10-04 02:28] LABS: Hematocrit 35.7 % (33.0-51.0); Hemoglobin 10.6 g/dL (11.5-16.0); Mean Corpuscular HGB Conc 29.7 g/dL (31.5-36.5); Mean Corpuscular Volume 75 fL (80-100); NRBC ABSOLUTE 0.00 K/mm3 (0.00-0.02); NRBC Auto 0.0 /100 WBC (0.0-0.2); Platelet Count 114 K/mm3 (150-400); RDW Coefficient Variation 22.2 % (11.7-14.2); RDW Standard Deviation 58.5 fL (35.1-46.3)
[2025-10-04 02:31] LABS: Alanine Aminotransfer (ALT/SGP 11.0 U/L (12-78); Albumin, Blood 1.3 g/dL (3.4-5.0); Albumin/Globulin Ratio 0.4 (0.8-1.8); Anion Gap 9.0 mmol/L (3-11); Aspartate Aminotrans (AST/SGOT 13.0 U/L (12-37); Bilirubin, Total 0.4 mg/dL (0.1-1.0); Blood Urea Nitrogen 14.0 mg/dL (8-24); CO2, Blood 25.0 mmol/L (21-32); Calcium, Blood 6.8 mg/dL (8.5-10.1); Chloride, Blood 102.0 mmol/L (98-108); Creatinine, Blood 1.06 mg/dL (0.40-1.00); Globulin, Blood 3.1 g/dL (2.2-4.0); Glucose, Blood 82.0 mg/dL (70-99); Potassium, Blood 3.9 mmol/L (3.5-5.5); Sodium, Blood 132.0 mmol/L (136-145); Total Protein, Blood 4.4 g/dL (6.4-8.2)
[2025-10-04] MEDS ORDERED: Dose Adjust by Pharmacy XX STA (02:55)
[2025-10-04] MEDS ORDERED: Heparin Sodium 5000 Units/ML 1ML MDV IV ONE (03:00)
[2025-10-04 03:41] LABS: BAND PERCENT MAN 3 % (0-8); BASOPHILS ABSOLUTE MAN 0.00 K/mm3 (0.00-0.23); BASOPHILS PERCENT MAN 0 % (0-2); EOSINOPHILS ABSOLUTE MAN 0.08 K/mm3 (0.00-0.68); EOSINOPHILS PERCENT MAN 1 % (0-6); LYMPHOCYTES % ATYPICAL MANUAL 2 % (0-0); LYMPHOCYTES ABSOLUTE MAN 2.83 K/mm3 (0.84-5.20); LYMPHOCYTES PERCENT MAN 30 % (21-46); MONOCYTES ABSOLUTE MAN 0.44 K/mm3 (0.16-1.47); MONOCYTES PERCENT MAN 5 % (4-13); NEUTROPHILS ABSOLUTE MAN 5.41 K/mm3 (1.96-9.15); SEG NEUTROPHILS PERCENT MAN 58 % (41-73)
[2025-10-04 03:42] LABS: OTHER CELL PERCENT MAN 1 % (0-0)
[2025-10-04 04:00] VITALS: BP 91/54
--- NOTE | 2025-10-04 05:09 | NUR ---
PATIENT ALERT AND ORIENTED, COMPLAINS OF PAIN TO ABDOMEN, TREATED WITH DILAUDID THROUGHOUT THE NIGHT, LUNGS DIMINISHED IN THE BASES, WHEEZES AUDIBLE ATHE BEGINING OF THE SHIFT, LATER THIS MORNING LUNGS REMAINED DIMINISHED IN THE BASES BUT NOT WHEEZING, PUREWICK IN PLACE, CLEAR YELLOW URINE, EPARIN DRIP INFUSING PER ORDER, CALL LIGHT IN REACH BEDIN LOW AND LOCKED POSITION, WILL CONTINUE TO MONITOR
--- NOTE | 2025-10-04 07:15 | NUR ---
RECEIVED REPORT FROM ERIN VILLA. PT NOTED LYING IN BED, ALERT AND ORIENTED. WITH ONGOING O2 VIA NC AND IV DRIP OF HEPARIN. WITH PORTABLE ASSOCIATE PATHOLOGIST ATTACHED. ALARMS ARE IN WORKING ORDER. TOOK OVER PT CARE AND ENCOURAGED PT TO VERBALIZE CONCERNS.
[2025-10-04 07:43] VITALS: BP 99/65
[2025-10-04] MEDS ORDERED: Torsemide 20 MG TAB PO SCH (09:00)
[2025-10-04 12:00] VITALS: BP 94/62
[2025-10-04] MEDS ORDERED: Vancomycin (Pharmacy Consult) IV SCH (12:00)
[2025-10-04 15:30] VITALS: BP 112/81
--- NOTE | 2025-10-04 16:51 | NUR ---
PT SUMMARY: PT WAS STILL ON NPO, AWAITING UPDATES FOR THE TARGET PROCEDURE. HEPARIN WAS STOPPED NEAR THE FIRST HALF OF THE SHIFT. SBP SOFT ON LOW 90S, PLR AT 100 MLS/HR WAS STARTED AND WAS EVENTUALLY PAUSED SBP WENT UP TO 140S-160S. SATS MAINTAINED AT 95-96% WHILE ON O2 VIA NC AT 2LPM. DENIES NAUSEA AND VOMITING. WAS AT BEDSIDE MOST OF THE SHIFT.
--- NOTE | 2025-10-04 18:03 | NUR ---
IR WAS NOT ABLE TO SEE THE PT TODAY AND WILL TRY TOMORROW. RESIDENT DOCTOR MADE ROUNDS AND PT WAS UPDATED ABOUT THE PLAN, AND WAS TOLD THAT MAY HAVE CLEAR LIQUIDS AGAIN AND NPO POST MIDNIGHT. HEPARIN DRIP ALSO RESTARTED. WILL REPORT TO ONCOMING SHIFT.
[2025-10-04 20:58] VITALS: BP 96/67
[2025-10-05] VITALS (8 sets, daily range): BP systolic 90–122; BP diastolic 53–94
[2025-10-05] MEDS ORDERED: Dose Adjust by Pharmacy XX STA ×4 (01:25→22:16)
[2025-10-05 04:07] LABS: BASOPHILS ABSOLUTE AUTO 0.05 K/mm3 (0.00-0.23); BASOPHILS PERCENT AUTO 1 % (0-2); EOSINOPHILS ABSOLUTE AUTO 0.13 K/mm3 (0.00-0.68); EOSINOPHILS PERCENT AUTO 1 % (0-6); Hematocrit 35.5 % (33.0-51.0); Hemoglobin 10.5 g/dL (11.5-16.0); IMMATURE GRAN ABSOLUTE AUTO 0.17 K/mm3 (0.00-0.10); IMMATURE GRAN PERCENT AUTO 2 % (0-1); LYMPHOCYTES ABSOLUTE AUTO 2.20 K/mm3 (0.84-5.20); LYMPHOCYTES PERCENT AUTO 20 % (21-46); MONOCYTES ABSOLUTE AUTO 0.31 K/mm3 (0.16-1.47); MONOCYTES PERCENT AUTO 3 % (4-13); Mean Corpuscular HGB Conc 29.6 g/dL (31.5-36.5); Mean Corpuscular Volume 77 fL (80-100); NEUTROPHILS ABSOLUTE AUTO 8.00 K/mm3 (1.96-9.15); NEUTROPHILS PERCENT AUTO 74 % (41-73); NRBC ABSOLUTE 0.00 K/mm3 (0.00-0.02); NRBC Auto 0.0 /100 WBC (0.0-0.2); Platelet Count 93 K/mm3 (150-400); RDW Coefficient Variation 22.5 % (11.7-14.2); RDW Standard Deviation 60.2 fL (35.1-46.3)
[2025-10-05 04:51] LABS: Albumin, Blood 1.0 g/dL (3.4-5.0); Anion Gap 13 mmol/L (3-11); Blood Urea Nitrogen 14 mg/dL (8-24); CO2, Blood 17 mmol/L (21-32); Calcium, Blood 6.7 mg/dL (8.5-10.1); Chloride, Blood 104 mmol/L (98-108); Creatinine, Blood 1.10 mg/dL (0.40-1.00); Glucose, Blood 80 mg/dL (70-99); Magnesium, Blood 1.9 mg/dL (1.6-2.4); Phosphorus, Blood 2.3 mg/dL (2.5-4.9); Potassium, Blood 3.6 mmol/L (3.5-5.5); Sodium, Blood 130 mmol/L (136-145)
--- NOTE | 2025-10-05 05:30 | NUR ---
SHIFT SUMMARY PT REMAINED A/OX4 T/O SHIFT. SLEPT THROUGH MOST OF THE NIGHT. SHE DECLINED TO USE HER CPAP AT NIGHT. SHE REMAINED ON 2-6L NC, TITRATED DEPENDING ON O2 SATURATIONS. ON CONTINUOUS PULSE OXIMETRY. AV PACED, HR 90'S-100'S, DENIED CHEST PAIN/PRESSURE. PURWICK IN PLACE AND DRAINING TO SUCTION. SHE HAD ONE INCONTINENT BM. SOFT, BROWN, AND NONFORMED. NO COMPLAINTS OF PAIN FOR THIS RN. HEPARIN GTT RUNNING AT 21U/KG/HR. NPO SINCE MIDNIGHT, HOLDING MORNING MED PER MD ORDER. NO ACUTE EVENTS THIS SHIFT.
[2025-10-05] MEDS ORDERED: CALCIUM GLUC IN NACL, ISO-OSM 50 ML IV ONE (08:25)
--- NOTE | 2025-10-05 17:03 | NUR ---
PT SUMMARY: PT ALERT AND ORIENTED. DIET WAS RESUMED TO CLEAR LIQUIDS, WITH GELATIN, BUT MAY HAVE SOFT, LIGHT MEALS. PT TOLERATING PO AT THIS TIME. VITALS PACED AT 70S-80S. SBP SOFT AT 100S. SATS ABOVE 96% AT 2LPM. AFEBRILE. ABDOMINAL PAIN CONTROLLED WITH IV DILAUDID. PT HAD BM AND PUREWICK WAS LEAKING. BED BATH DONE BY PCT ON DUTY. DENIES NAUSEA AND VOMITING. HEPARIN DRIP STILL ONGOING AT 22 u/kg/hr (29mls/hr). AT THE BEDSIDE MOST OF THE SHIFT. ABLE TO SPEAK WITH THE DOCTOR FOR CHANGES IN THE PLAN OF PROCEDURE. PT WAS BROUGHT TO IMAGING FOR A CTSCAN ON THE ABDOMEN AT 1600, DOCTORS WILL DOUBLE CHECK THE CTSCAN RESULTS AND WILL DECIDE IF SAFE TO DO THE DRAIN HERE. WILL REPORT TO ONCOMING SHIFT.
[2025-10-05] MEDS ORDERED: NS 250 ML IV PRN (20:40)
[2025-10-06] VITALS (17 sets, daily range): BP systolic 77–112; BP diastolic 45–67
[2025-10-06 05:42] LABS: Hematocrit 31.7 % (33.0-51.0); Hemoglobin 9.7 g/dL (11.5-16.0); Platelet Count 105 K/mm3 (150-400)
[2025-10-06] MEDS ORDERED: Dose Adjust by Pharmacy XX STA ×3 (06:11→22:12)
--- NOTE | 2025-10-06 06:34 | NUR ---
SHIFT SUMMARY PATIENT A/OX4. SLEPT MOST OF NIGHT. MEDICATED AT BEGINNING OF SHIFT FOR 06/07 ABD PAIN. PATIENT'S ABD SOFT AND TENDER. RUQ SLIGHTLY FIRMER THAN REST OF ABD. AV PACED ON MONITOR @ 70'S. HEPARIN TITRATED PER PHARMACY. CURRENTLY AT 25U/KG/HR @ 33ML/HR. PT VOIDING WITH PUREWICK IN PLACE. FLUID POSITIVE THIS SHIFT. PLAN OF CARE ONGOING.
[2025-10-06 07:08] LABS: Albumin, Blood 1.2 g/dL (3.4-5.0); Anion Gap 8 mmol/L (3-11); BASOPHILS ABSOLUTE AUTO 0.03 K/mm3 (0.00-0.23); BASOPHILS PERCENT AUTO 0 % (0-2); Blood Urea Nitrogen 14 mg/dL (8-24); CO2, Blood 27 mmol/L (21-32); Calcium, Blood 6.7 mg/dL (8.5-10.1); Chloride, Blood 102 mmol/L (98-108); Creatinine, Blood 1.10 mg/dL (0.40-1.00); EOSINOPHILS ABSOLUTE AUTO 0.07 K/mm3 (0.00-0.68); EOSINOPHILS PERCENT AUTO 1 % (0-6); Glucose, Blood 105 mg/dL (70-99); IMMATURE GRAN ABSOLUTE AUTO 0.11 K/mm3 (0.00-0.10); IMMATURE GRAN PERCENT AUTO 1 % (0-1); LYMPHOCYTES ABSOLUTE AUTO 1.57 K/mm3 (0.84-5.20); LYMPHOCYTES PERCENT AUTO 18 % (21-46); MONOCYTES ABSOLUTE AUTO 0.38 K/mm3 (0.16-1.47); MONOCYTES PERCENT AUTO 4 % (4-13); Mean Corpuscular HGB Conc 31.0 g/dL (31.5-36.5); NEUTROPHILS ABSOLUTE AUTO 6.51 K/mm3 (1.96-9.15); NEUTROPHILS PERCENT AUTO 75 % (41-73); NRBC ABSOLUTE 0.00 K/mm3 (0.00-0.02); NRBC Auto 0.0 /100 WBC (0.0-0.2); Phosphorus, Blood 2.2 mg/dL (2.5-4.9); Potassium, Blood 3.1 mmol/L (3.5-5.5); RDW Coefficient Variation 22.5 % (11.7-14.2); RDW Standard Deviation 58.2 fL (35.1-46.3); Sodium, Blood 134 mmol/L (136-145)
[2025-10-06 07:09] LABS: Mean Corpuscular Volume 72 fL (80-100)
[2025-10-06] MEDS ORDERED: Polyethylene Glycol 3350 17 gm PO PRN (07:25)
[2025-10-06] MEDS ORDERED: Sodium Phosphate 15 MM in Dextrose 5% 250 ML IV STA (07:53)
[2025-10-06] MEDS ORDERED: Calcium Chloride 10% 1,000 MG in NS 50 ML IV ONE (07:55)
[2025-10-06] MEDS ORDERED: Lactobacil 2-S.Thermo-Bifido 1 1 Cap PO SCH (09:00)
--- NOTE | 2025-10-06 12:07 | NUR ---
UPDATE PATIENT IS INCREASINGLY LETHARGIC, ABLE TO AROUSE BUT UNABLE TO HOLD CONVERSATION BEFORE FALLING ASLEEP. PER PATIENT'S , PATIENT HAS NOT WORN CPAP SINCE ADMISSION AND PATIENT WEARS IT NIGHTLY AT BASELINE. PROVIDER NOTIFIED, THIS RN RECOMMENDED VBG. PER PROVIDER, WILL PUT IN ORDER FOR VBG. RT NOTIFIED, CPAP PLACED ON PATIENT.
[2025-10-06 12:34] LABS: pH Blood Venous 7.36 (7.34-7.37)
--- NOTE | 2025-10-06 17:00 | NUR ---
SHIFT SUMMARY PATIENT IS ALERT AND ORIENTED, ABLE TO FOLLOW COMMANDS AND MAKE NEEDS KNOWN. PATIENT INCREASINGLY LETHARGIC AT START OF SHIFT, PROVIDER CONTACTED REGARDING SYMPTOMS, SEE PRIOR NOTE FOR FURTHER DETAILS, PATIENT IS LESS LETHARGIC AND MORE ALERT BY END OF SHIFT. TELE IN PLACE, DUAL PACED IN 70'S, SPO2 >90% ON 2L VIA NC, CPAP WHILE SLEEPING. PATIENT REPORTING SEVERE ABDOMINAL PAIN, MEDICATED PER EMAR. INCONTINENT OF URINE, PUREWICK IN PLACE AT START OF SHIFT AND DRAINING TO SUCTION, REDNESS NOTED IN PERINEAL AREA, PUREWICK TEMPORARILY REMOVED FOR RELIEF. PATIENT ENCOURAGED TO GET UP TO CHAIR THROUGHOUT SHIFT, PATIENT DECLINED, EDUCATION ON MOBILITY PROVIDED. PATIENT IS UP IN BED, BED IN LOWEST POSITION, CALL LIGHT WITHIN REACH, AT BEDSIDE.
--- NOTE | 2025-10-06 21:00 | NUR ---
CALL TO PROVIDER AND DISCUSSED RECENT LABS, FLUID BALANCE, AND RECENT VITAL SIGNS. PATIENT APPEARS TO BE MORE EDEMATOUS IN ALL EXTREMITIES AND FACE. PATIENT HAS ALSO GAINED WEIGHT SINCE ADMISSION. NO NEW ORDERS AT THIS TIME.
--- NOTE | 2025-10-06 22:15 | NUR ---
UPDATE CALL MADE TO PROVIDER ABOUT RECENT SOFT BLOOD PRESSURES. PATIENT IS ASYMPTOMATIC AT THIS TIME. DR BEEBE TO UNIT AND BEDSIDE TO EVAL PATIENT.
[2025-10-06] MEDS ORDERED: Ketorolac Tromethamine 30mg Vial IV ONE (22:55)
--- NOTE | 2025-10-06 23:51 | NUR ---
UPDATE PATIENT MEDICATED WITH TORADOL 30MG IVP. PATIENT REPORTS HAVING TORADOL PREVIOUSLY. Q15 MIN VITALS. CONTINUES SOFT BP. PT SLEEPING WITH CPAP IN PLACE AV PACED ON MONITOR RATE 70'S.
[2025-10-07] VITALS (31 sets, daily range): BP systolic 82–112; BP diastolic 51–80
[2025-10-07] MEDS ORDERED: HYDROcodone 5-APAP 325 TAB PO ONE (04:45)
[2025-10-07 04:54] LABS: BASOPHILS ABSOLUTE AUTO 0.04 K/mm3 (0.00-0.23); BASOPHILS PERCENT AUTO 1 % (0-2); EOSINOPHILS ABSOLUTE AUTO 0.11 K/mm3 (0.00-0.68); EOSINOPHILS PERCENT AUTO 2 % (0-6); Hematocrit 30.5 % (33.0-51.0); Hemoglobin 9.2 g/dL (11.5-16.0); IMMATURE GRAN ABSOLUTE AUTO 0.10 K/mm3 (0.00-0.10); IMMATURE GRAN PERCENT AUTO 2 % (0-1); LYMPHOCYTES ABSOLUTE AUTO 1.53 K/mm3 (0.84-5.20); LYMPHOCYTES PERCENT AUTO 24 % (21-46); MONOCYTES ABSOLUTE AUTO 0.43 K/mm3 (0.16-1.47); MONOCYTES PERCENT AUTO 7 % (4-13); Mean Corpuscular HGB Conc 30.2 g/dL (31.5-36.5); Mean Corpuscular Volume 74 fL (80-100); NEUTROPHILS ABSOLUTE AUTO 4.24 K/mm3 (1.96-9.15); NEUTROPHILS PERCENT AUTO 66 % (41-73); NRBC ABSOLUTE 0.00 K/mm3 (0.00-0.02); NRBC Auto 0.0 /100 WBC (0.0-0.2); Platelet Count 111 K/mm3 (150-400); RDW Coefficient Variation 22.6 % (11.7-14.2); RDW Standard Deviation 59.6 fL (35.1-46.3)
[2025-10-07 05:13] LABS: Alanine Aminotransfer (ALT/SGP 8.0 U/L (12-78); Albumin, Blood 1.1 g/dL (3.4-5.0); Albumin/Globulin Ratio 0.3 (0.8-1.8); Anion Gap 10.0 mmol/L (3-11); Aspartate Aminotrans (AST/SGOT 7.0 U/L (12-37); Bilirubin, Total 0.4 mg/dL (0.1-1.0); Blood Urea Nitrogen 16.0 mg/dL (8-24); CO2, Blood 24.0 mmol/L (21-32); Calcium, Blood 6.9 mg/dL (8.5-10.1); Chloride, Blood 106.0 mmol/L (98-108); Creatinine, Blood 1.2 mg/dL (0.40-1.00); Globulin, Blood 3.3 g/dL (2.2-4.0); Glucose, Blood 101.0 mg/dL (70-99); Magnesium, Blood 1.7 mg/dL (1.6-2.4); Phosphorus, Blood 2.6 mg/dL (2.5-4.9); Potassium, Blood 3.5 mmol/L (3.5-5.5); Sodium, Blood 136.0 mmol/L (136-145); Total Protein, Blood 4.4 g/dL (6.4-8.2)
[2025-10-07] MEDS ORDERED: Dose Adjust by Pharmacy XX STA (05:40)
--- NOTE | 2025-10-07 06:30 | NUR ---
SHIFT SUMMARY PATIENT A/OX4 ALL NIGHT. SLEPT WELL WHEN ABLE. ISHAAN CPAP WELL. ON O2 @ 2L VIA NC WHILE AWAKE. MEDICATED WITH DILAUDID 0.5MG IV AT BEGINNING OF SHIFT. HELD OFF REST OF SHIFT DUE TO SOFT BP. PATIENT TRENDED SOFT BP MOST OF NIGHT. MENTAL STATUS UNCHANGED DURING NEURO CHECKS. CONTINUOUS ABD PAIN. DR BEEBE AWARE OF SITUATION. HE SPOKE WITH DR KNAPP AND TRANSFER ARRANGEMENTS MADE TO [facility]. DR DAVIS ACCEPTING PHYSICIAN. ROOM UNIT 8C #19 AT [facility]. TRANSPORT GROUND ARRANGED FOR 729. PT'S TO BEDSIDE AND UPDATED. PATIENT ABLE TO SIGN CONSENT FOR TRANSFER. QUESTIONS ANSWERED. VITALS STABLE AT THIS TIME. HEPARIN INFUSING PER EMR AND WILL CONTINUE ON TRANSPORT. REPORT TO DAY SHIFT RN AT THIS TIME. WILL ATTEMPT TO CALL [facility] FOR REPORT.
--- NOTE | 2025-10-07 06:48 | NUR ---
ATTEMPT TO CALL [facility] FOR REPORT. TOLD TO CALL BACK AFTER 714 DUE TO NURSING STAFF CHANGING SHIFT CURRENTLY.
--- NOTE | 2025-10-07 07:25 | NUR ---
REPORT TO [facility] NURSE.
--- NOTE | 2025-10-07 08:01 | NUR ---
ASSUMPTION OF CARE/TRANSFER PATIENT IS ALERT AND ORIENTED, ABLE TO FOLLOW COMMANDS AND MAKE NEEDS KNOWN. VSS, SPO2 >90% ON 2L VIA NC, DUAL PACED, HR IN 70'S. PATIENT DENIES CHEST PAIN OR PRESSURE. REPORTS MODERATE ABDOMINAL PAIN THIS AM, PATIENT RECEIVED ANALGESIC MEDICATION BY SIGN LANGUAGE TRANSLATOR RN THIS AM WITH MINIMAL RELIEF. PT HYPOTENSIVE OVERNIGHT WITH MAP LESS THAN 65, ADDITIONAL ANALGESICS NOT GIVEN DUE TO HYPOTENSIVE EPISODE. PATIENT LEFT UNIT VIA GURNEY WITH TRANSPORT TO [facility]. REPORT GIVEN TO TRANSPORT. VSS, PATIENT IN NO SIGNS OF DISTRESS. ALL PERSONAL BELONGINGS WITH PATIENT.
[2025-10-07] MEDS ORDERED: Enoxaparin 100 MG/ML 1ML SYR SC SCH (09:00)
== END 2025-10-07 08:00 | disposition short-term general hospital (02) | DRG 862 ==
LOC: PCU 16:02
PROVIDERS: Hospitalist; ADMIT Student in an Organized Health Care Education/Training Program
DX: T81.40XA Infection following a procedure, unspecified, initial encounter (principal); K55.019 Acute (reversible) ischemia of small intestine, extent unspecified; K65.1 Peritoneal abscess; T81.320A Disruption or dehiscence of gastrointestinal tract anastomosis, repair, or closure, initial encounter; I50.22 Chronic systolic (congestive) heart failure; I47.29 Other ventricular tachycardia; Y83.8 Other surgical procedures as the cause of abnormal reaction of the patient, or of later complication, without mention of misadventure at the time of the procedure; J44.9 Chronic obstructive pulmonary disease, unspecified; I11.0 Hypertensive heart disease with heart failure; E78.5 Hyperlipidemia, unspecified; E03.9 Hypothyroidism, unspecified; E87.6 Hypokalemia; F17.210 Nicotine dependence, cigarettes, uncomplicated; G47.33 Obstructive sleep apnea (adult) (pediatric); B95.8 Unspecified staphylococcus as the cause of diseases classified elsewhere; Z99.81 Dependence on supplemental oxygen; Z23 Encounter for immunization; I25.10 Atherosclerotic heart disease of native coronary artery without angina pectoris; I48.91 Unspecified atrial fibrillation; Z99.89 Dependence on other enabling machines and devices; Z93.2 Ileostomy status; Z88.5 Allergy status to narcotic agent; Z88.1 Allergy status to other antibiotic agents; Z88.0 Allergy status to penicillin; Z79.51 Long term (current) use of inhaled steroids; Z79.899 Other long term (current) drug therapy; Z79.890 Hormone replacement therapy; Z79.82 Long term (current) use of aspirin; Z91.038 Other insect allergy status; Z88.8 Allergy status to other drugs, medicaments and biological substances; Z90.49 Acquired absence of other specified parts of digestive tract; Z79.01 Long term (current) use of anticoagulants; Z87.19 Personal history of other diseases of the digestive system
CPT/HCPCS: 36415; 51702; 74177; 80053; 80069; 82330; 82803; 83605; 83735; 84100; 84439; 84443; 84481; 85014; 85018; 85025; 85049; 85520; 85610; 87040; 94640; 94660; 94664; 94762; A9270; C1751; C8929; J0612; J0744; J1171; J1200; J1644; J1885; J2405; J3010; J3373; J3480; J7030; J7050; J7060; J7120; Q9957; Q9967